=== PATIENT | male | born 1975 | race Caucasian/White ===

== ENCOUNTER 2022-03-17 23:32 | Emergency (ER) | payer MEDICARE, MEDICAID ==
[2022-03-18] MEDS: Sodium Chloride 0.9% 10 ML Syringe FLUSH PRN (00:12)
[2022-03-18 00:54] LABS: ANION GAP 14.4 mEq/L (7-13); CHLORIDE,CL 104 mmol/L (98-107); SODIUM,NA 142 mmol/L (136-145)
[2022-03-18 01:13] LABS: ESTIMATED GFR 110 mL/min (>=60)
[2022-03-18 02:05] LABS: AMPHETAMINES,URINE POSITIVE (NEGATIVE); BARBITURATES,URINE NEGATIVE (NEGATIVE); BENZODIAZEPINE,URINE NEGATIVE (NEGATIVE); MDMA (ECSTASY), URINE NEGATIVE (NEGATIVE); METHADONE,URINE NEGATIVE (NEGATIVE); METHAMPHETAMINES,URINE POSITIVE (NEGATIVE); OPIATES,URINE POSITIVE (NEGATIVE); OXYCODONE,URINE NEGATIVE (NEGATIVE); PHENCYCLIDINE,URINE NEGATIVE (NEGATIVE); TCA,URINE POSITIVE (NEGATIVE)
== END 2022-03-18 02:20 | disposition home or self-care (01) ==
LOC: DL.ED 23:32
DX: F15.10 Other stimulant abuse, uncomplicated (principal); I10 Essential (primary) hypertension; Z87.891 Personal history of nicotine dependence; Z79.899 Other long term (current) drug therapy
CPT/HCPCS: 36415; 80053; 80305; 81003; 83605; 83735; 83880; 84443; 84484; 85025; 86140; 93005; 93010; 99282; 99283; J3490